=== PATIENT | female | born 1990 | race Caucasian/White ===

== ENCOUNTER → 2023-12-03 09:55 | Outpatient (REF) | payer OTHER, SELFPAY | LOC: HWRAD 09:55 | PROVIDERS: ATTENDING PHYSICIAN Nurse Practitioner | DX: R59.0 Localized enlarged lymph nodes (principal) | CPT/HCPCS: 76536 ==

== ENCOUNTER → 2023-12-19 13:31 | Outpatient (REF) | payer OTHER, SELFPAY ==
[2023-12-19 13:37] VITALS: BP 111/75; BP_SYST 87
== END ==
LOC: RADI 13:31
PROVIDERS: ATTENDING PHYSICIAN Nurse Practitioner
DX: E04.1 Nontoxic single thyroid nodule (principal)
CPT/HCPCS: 88173; 10005

== ENCOUNTER → 2024-01-08 08:59 | Outpatient (REF) | payer OTHER, SELFPAY | LOC: RAD 08:59 | PROVIDERS: ATTENDING PHYSICIAN Surgery; FAMILY PHYSICIAN Nurse Practitioner | DX: R59.1 Generalized enlarged lymph nodes (principal) | CPT/HCPCS: 70491; Q9967 ==

== ENCOUNTER → 2024-01-11 10:29 | Outpatient (REF) | payer OTHER, SELFPAY ==
[2024-01-11 10:46] VITALS: BP_SYST 73
[2024-01-11 12:51] VITALS: BP 111/73
== END ==
LOC: RADI 10:29
PROVIDERS: ATTENDING PHYSICIAN Surgery
DX: C77.0 Secondary and unspecified malignant neoplasm of lymph nodes of head, face and neck (principal); C73 Malignant neoplasm of thyroid gland
CPT/HCPCS: 88172; 88173; 88305; 38505; 76942; 88333; 99152; 99153

== ENCOUNTER 2024-01-29 11:13 | Inpatient (IN) | payer OTHER, SELFPAY ==
[2024-01-25 08:54] LABS: Hematocrit 39.4 % (37.0-47.0); Hemoglobin 13.5 g/dL (12.0-16.0); Mean Corp Hgb Conc. 34.3 g/dL (33.0-37.0); Mean Corpuscular Hgb 29.4 pg (27.0-31.0); Mean Corpuscular Volume 85.8 fL (81.0-99.0); Mean Platelet Volume 10.4 fL (7.4-10.4); Platelet Count 222 10^3/uL (130-400); Red Blood Cell Count 4.59 10^6/uL (4.20-5.40); Red Cell Dist. Width 12.6 % (11.5-14.5); White Blood Cell Count 5.8 10^3/uL (4.8-10.8)
[2024-01-25 08:58] LABS: INR 1.06; PT 13.6 Sec (11.4-14.6)
[2024-01-25 08:59] LABS: APTT 34.7 Sec (23.4-35.0)
[2024-01-25 09:31] LABS: ALT (SGPT) 13 U/L (0-35); AST (SGOT) 17 U/L (14-36); Albumin 4.3 g/dl (3.5-5.0); Alkaline Phosphatase 101 U/L (38-126); Blood Urea Nitrogen 14 mg/dl (7-17); Calcium 9.3 mg/dl (8.4-10.2); Carbon Dioxide 25 mmol/L (22-30); Chloride 105 mmol/L (98-107); Glucose 100 mg/dl (70-99); Potassium 4.2 mmol/L (3.5-5.1); Sodium 137 mmol/L (135-145); Total Bilirubin 0.5 mg/dl (0.2-1.3); Total Protein 7.2 g/dl (6.3-8.2); eGFR > 60.00
[2024-01-25 13:34] VITALS: BMI 25.1
[2024-01-29] VITALS (16 sets, daily range): BP systolic 10–143; BP diastolic 66–79; BMI 25.1
[2024-01-29] MEDS: TRANSDERM-SCOP 1 PATCH TRANSDERM (11:29)
[2024-01-29] MEDS: HEPARIN 5000 UNITS SC (11:30)
[2024-01-29] MEDS: TYLENOL 1000 MG PO (11:30)
[2024-01-29] MEDS: NEURONTIN 300 MG PO (11:30)
[2024-01-29] MEDS: NORMOSOL-R 1000 IV (11:31)
[2024-01-29] MEDS: D5/0.45%NSS with KCL 20 MEQ 1000 IV (18:37)
[2024-01-29] MEDS: DILAUDID 0.5 MG IV (19:08)
--- NOTE | 2024-01-29 19:45 | PTCARENOTE ---
Pt arrived from PACU to 2S at 1945 in a bed with IVF infusing. Pt has L STARR drain. Admission hx obtained at the bedside. Pt AAxOx3. Oriented to room and call chun.
[2024-01-29] MEDS: LAMICTAL 200 MG PO (20:47)
[2024-01-29] MEDS: TYLENOL 650 MG PO (20:49)
[2024-01-29] MEDS: TEGRETOL 200 MG PO (20:49)
[2024-01-29] MEDS: ZOFRAN 4 MG IV (20:53)
[2024-01-29 21:08] LABS: AST (SGOT) 26 U/L (14-36); Albumin 3.9 g/dl (3.5-5.0); Alkaline Phosphatase 82 U/L (38-126); Blood Urea Nitrogen 9 mg/dl (7-17); Calcium 7.8 mg/dl (8.4-10.2); Carbon Dioxide 24 mmol/L (22-30); Chloride 105 mmol/L (98-107); Estimated Creatinine Clearance 121 ml/min; Glucose 153 mg/dl (70-99); Potassium 4.1 mmol/L (3.5-5.1); Sodium 135 mmol/L (135-145); Total Bilirubin 0.3 mg/dl (0.2-1.3); Total Protein 6.5 g/dl (6.3-8.2); eGFR > 60.00
[2024-01-29 22:07] LABS: ALT (SGPT) 10 U/L (0-35)
[2024-01-29] MEDS: COMPAZINE 5 MG IV (22:08)
[2024-01-30] MEDS: TYLENOL PO (00:50)
[2024-01-30 03:40] VITALS: BP 113/69
[2024-01-30] MEDS: TYLENOL 650 MG PO ×4 (04:15→15:00)
[2024-01-30 07:12] VITALS: BP 114/66
[2024-01-30 07:31] LABS: ALT (SGPT) 11 U/L (0-35); AST (SGOT) 22 U/L (14-36); Albumin 3.5 g/dl (3.5-5.0); Alkaline Phosphatase 85 U/L (38-126); Blood Urea Nitrogen 8 mg/dl (7-17); Calcium 7.2 mg/dl (8.4-10.2); Carbon Dioxide 25 mmol/L (22-30); Chloride 105 mmol/L (98-107); Estimated Creatinine Clearance 121 ml/min; Glucose 121 mg/dl (70-99); Potassium 3.7 mmol/L (3.5-5.1); Sodium 136 mmol/L (135-145); Total Bilirubin 0.4 mg/dl (0.2-1.3); eGFR > 60.00
[2024-01-30] MEDS: D5/0.45%NSS with KCL 20 MEQ 1000 IV (07:48)
[2024-01-30] MEDS: CALCIUM GLUCONATE 100 IV (10:42)
--- NOTE | 2024-01-30 11:35 | CM ---
Initial assessment completed with patient who lives with a roommate in a 3rd floor apartment with no elevator and 3 steps to enter the building. No DME or in-home services. 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 Patient has
a history of anxiety but no inpatient psychiatric hospitalizations. [facility]acy is [facility] [place] and AUDIOVISUAL LEAD TECHNICIAN is Rachel Thornton. Discharge Plan of Care: Patient will need VN for wound care. She currently has a drain which may be removed
prior to discharge, if not, MD will remove in office on 01/31/24. [facility] is [facility].
Patient will be staying with father and step-mother after discharge. They live in a 2 story home with 2 steps to enter. Patient will remain on the 1st floor.
[place] [address] [address] [place]
Patient cell #: [phone]
Father-Toby cell#: [phone]
Step-Mother- [place] cell #: [phone]
[2024-01-30 11:48] VITALS: BP 115/69
--- NOTE | 2024-01-30 13:04 | VNURNOTE ---
This author attempted to meet patient at bedside, she was sound asleep. Home Health Liaison spoke with patient's father Toby over the phone to discuss [facility] nurse visits, schedule and homebound status. Patient will be staying at his house to
recoup. He understands that visits at home will be 1-3 x per week to assess wound, wound care, and teach medical management. Potential for home with drain. [facility] contact information provided. Father is aware that [facility] will contact them for start
of care in 1-2 days after discharge from . [facility] referral completed in [facility].
[2024-01-30] MEDS: TUMS EX (EXTRA STRENGTH) CHEWABLE 2 TABLET PO (15:00)
--- NOTE | 2024-01-30 15:55 | W.DS.TRANS ---
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
-
Discharge Instructions:
Sleep Apnea Risk Low
Discharge Diagnosis/Procedures thyroidectomy and neck dissection
Diet Regular
Activity As tolerated
Driving Restrictions No driving for 1 week
Bathing Restrictions OK to Shower
Instructions:
Stand-Alone Forms:
Changes to Home Medications: Yes
Discharge Medications:
DC Medications w/original date entered in [employer]
carbamazepine 200 mg tablet 200 mg PO QPM Mental Health/Anxiety 08/12/21
lamotrigine 100 mg tablet 200 mg PO QPM Mental Health/Anxiety 08/12/21
naproxen sodium 220 mg tablet (Aleve) 220 mg PO BID PRN pain 12/19/23
calcitriol 0.25 mcg capsule 0.25 mcg PO BID hypocalcemia #60 caps 01/30/24
calcium carbonate (Antacid Extra-Strength) 2 tab PO TID hypocalcemia #90 tabs 01/30/24
Home Medication Changes
Pending Results: No
[2024-01-30 16:07] VITALS: BP 122/78
--- NOTE | 2024-01-30 16:22 | CM ---
Patient has been medically cleared for discharge to home with [facility] VN services. Patient has arranged for transport home.
--- NOTE | 2024-02-03 10:18 | OR.RPT ---
Operative Report
Operative Report
PATIENT NAME: Garima Marrufo
DATE OF : 1990
DATE OF OPERATION: January 29, 2024
PREOPERATIVE DIAGNOSIS: Left Thyroid Cancer - C73; Metastatic lymph nodes in the left neck - C770
POSTOPERATIVE DIAGNOSIS: Same
SURGEON: Nilson Vieyra M.D.
OPERATION: Left Functional Neck Dissection Neck Dissection � 57520 (right level 6, left levels 2,3,4, & 6); Total thyroidectomy, autotransplant of two parathyroid glands in the left SCM muscle.
ANESTHESIA: GET
ESTIMATED BLOOD LOSS: 30 cc
DRAINS: Medium STARR drain
SPECIMEN: left neck tissue levels 2, 3, 4, and 6, right neck tissue level 6, and total thyroid
FINDINGS: a large left thyroid tumor, grossly matted cervical lymph nodes, fibrosis in the neck
COMPLICATIONS:�None
PROCEDURE:
The patient was taken to the operating room and placed in the usual supine position. After adequate general endotracheal anesthesia was established, the patient�s neck was extended, prepped, and draped in the typical sterile fashion. The head was
turned to the right. A hockey stick incision was made from the left mastoid process to the lower anterior neck. The skin incision was made with the #15 blade, which was taken through the skin into the subcutaneous tissue. The underlying platysma
muscle was divided, and subplatysmal flaps were created superiorly to the mandible and inferiorly to the clavicle. The sternocleidomastoid muscle into the sternum and the clavicle insertion to the angle of the mandible were dissected from its
surrounding fascia and areolar tissue. During this process, the greater auricular nerve and the external jugular vein were dissected and preserved.
The dissection of the sternocleidomastoid muscle began with a longitudinal incision over the fascia along the entire length of the muscle. The external jugular vein was transected close to the posterior border of the sternocleidomastoid muscle. The
external jugular vein was then included in the specimen and dissected forward with the fascia of the sternocleidomastoid muscle. The dissection reached the anterior border and the posterior aspect of the sternocleidomastoid muscle. At this time, the
spinal accessory nerve was identified below the upper half of the sternocleidomastoid muscle, which was dissected and preserved throughout its course.
The fascia of the digastric triangle is dissected downward, taking care to stay below the marginal mandibular nerve. The sternocleidomastoid is dissected off the deep layer of the investing fascia and retracted posteriorly. Significant fibrosis with
matted lymph nodes was identified, which made identifying structures difficult. The fascia and nodes of level II are dissected from the mastoid downward, exposing the internal jugular vein at the skull base and the spinal accessory nerve entering
the upper part of the sternocleidomastoid. The lymph nodes around and behind the spinal accessory nerve in level IIB were carefully dissected and swept inferiorly. Also, the submandibular gland and hypoglossal nerve were identified and preserved.
The sternocleidomastoid is retracted posteriorly, and no lymphadenopathy was noted in the posterior triangle (left level Vb). Therefore, the left level V lymph nodes were not dissected. The dissection was done by stripping the carotid sheath from
the anterior surfaces of the internal jugular vein and carotid artery and completing the dissection anteriorly to the edge of the strap muscles. The vagus and phrenic nerves were identified and preserved. The left levels 2, 3, and 4 were removed and
sent to the pathology department.
The strap muscles were identified and at the midline. Attention was turned to the patient�s right thyroid lobe. The right thyroid lobe was mobilized medially. During this process, the right middle thyroid vein and inferior thyroid artery
were dissected and ligated with Ligasure. Next, the right superior pole was taken down by dissecting and transecting the superior pole vessels with a Ligasure. The right thyroid lobe was mobilized medially. During this process, the right recurrent
laryngeal nerve was identified and preserved throughout its entire course. The right superior and inferior parathyroid glands were identified and preserved. At this time, the right neck dissection was performed. The tissue between the right carotid
artery to the trachea into the anterior mediastinum was carefully dissected. The previously identified recurrent laryngeal nerve was preserved. The inferior parathyroid gland had to be removed with the lymph nodes, which were dissected off the
specimen ex vivo and auto-transplanted in the left SCM muscle. �The tissue was sent to the pathology department as the right level lymph nodes.
Attention was turned to the patient�s left thyroid lobe, which was mobilized medially. During this process, the left middle thyroid vein and inferior thyroid artery were dissected and ligated with Ligasure. Next, the left superior pole was taken
down by dissecting and transecting the superior pole vessels with Ligasure. The left thyroid lobe was mobilized medially. During this process, the left recurrent laryngeal nerve was identified and preserved throughout its entire course. The total
thyroid was resected off the trachea and sent to the pathology department.
Next, the left neck dissection was performed. The tissue between the left carotid artery to the trachea into the anterior mediastinum was carefully dissected. The previously identified recurrent laryngeal nerve was preserved. The inferior
parathyroid gland had to be removed with the lymph nodes, which were dissected off the specimen ex vivo and auto-transplanted in the left SCM muscle with the other parathyroid gland. �The tissue was sent to the pathology department as the left level
lymph nodes.
A small STARR drain was left in the lateral neck through a separate inferior and lateral incision, which was anchored to the skin using a #3-0 Nylon. After obtaining adequate hemostasis, the strap muscle was approximated with #3-0 Vicryl in a running
fashion, and platysma muscles were reapproximated with #3-0 Vicryl in an interrupted fashion, and the skin was approximated with #4-0 Monocryl in a running subcuticular fashion. Steri-strips and sterile dressings were placed. The patient tolerated
the procedure well. The final instrument, needle, and sponge counts were correct.
== END 2024-01-30 16:52 | disposition home health service (06) | DRG 626 ==
LOC: 2 SOUTH 11:13
PROVIDERS: ADMITTING PHYSICIAN Surgery; FAMILY PHYSICIAN Nurse Practitioner
PROC: 07B10ZZ Excision of Right Neck Lymphatic, Open Approach (ICD-10-PCS; 2024-01-29)
PROC: 0GTK0ZZ Resection of Thyroid Gland, Open Approach (ICD-10-PCS; 2024-01-29)
PROC: 07B20ZZ Excision of Left Neck Lymphatic, Open Approach (ICD-10-PCS; 2024-01-29)
PROC: 0GSQ0ZZ Reposition Multiple Parathyroid Glands, Open Approach (ICD-10-PCS; 2024-01-29)
DX: C73 Malignant neoplasm of thyroid gland (principal); C77.0 Secondary and unspecified malignant neoplasm of lymph nodes of head, face and neck
CPT/HCPCS: 88305; 88307; 36415; 80053; 85027; 85610; 85730; 93005; C1729; C1776; C9250

== ENCOUNTER 2024-03-11 09:44 | Inpatient (IN) | payer OTHER, SELFPAY ==
[2024-03-11] VITALS (14 sets, daily range): BP systolic 10–132; BP diastolic 67–81; BMI 27.9
[2024-03-11] MEDS: NEURONTIN 300 MG PO (09:43)
[2024-03-11] MEDS: HEPARIN 5000 UNITS SC (09:44)
[2024-03-11] MEDS: TYLENOL 1000 MG PO (09:44)
[2024-03-11] MEDS: NORMOSOL-R/PLASMALYTE-A 1000 IV (09:45)
[2024-03-11] MEDS: TRANSDERM-SCOP 1 PATCH TRANSDERM (09:50)
--- NOTE | 2024-03-11 15:31 | OR.RPT ---
Operative Report
Operative Report
DATE OF OPERATION: March 11, 2024
PREOPERATIVE DIAGNOSIS: Thyroid Cancer - C73 with metastatic disease to ther cervical lymph nodes
POSTOPERATIVE DIAGNOSIS: Same
SURGEON: Nilson Vieyra M.D.
OPERATION: Right Functional Neck Dissection Neck Dissection and Left Selective Neck Level 5b Dissection- 52130
ANESTHESIA: GET
ESTIMATED BLOOD LOSS: 15 cc
DRAINS: Medium STARR drain
SPECIMEN: right neck tissue levels 2b, 3, 4, and 5b and left neck tissue level 5b
FINDINGS: fibrosis and bulky lymphadenopathy
COMPLICATIONS:�None
PROCEDURE:
The patient was taken to the operating room and placed in the usual supine position. After adequate general endotracheal anesthesia was established, the patient�s neck was extended, prepped, and draped in the typical sterile fashion. The head was
turned to the left. The previous left hockey stick incision was identified. A lateral incision, perpendicular to the old incision, was made from the mid-point of the old incision, over the left neck level 5b. The platysmal muscle was divided and the
subplatysmal flaps were created. The left spinal accessory nerve was identified preserved. The lymph node in the area was carefully dissected and sent to the pathology department.
Next, attention was turned to the right side of her neck. A hockey stick incision was made from the mastoid process to the lower anterior neck. The skin incision was made with the #15 blade, which was taken through the skin into the subcutaneous
tissue. The underlying platysma muscle was divided, and subplatysmal flaps were created superiorly to the mandible and inferiorly to the clavicle. The sternocleidomastoid muscle into the sternum and the clavicle insertion to the angle of the
mandible were dissected from its surrounding fascia and areolar tissue. During this process, the greater auricular nerve and the external jugular vein were dissected and preserved.
The dissection of the sternocleidomastoid muscle began with a longitudinal incision over the fascia along the entire length of the muscle. The external jugular vein was transected close to the posterior border of the sternocleidomastoid muscle. The
vein was then included in the specimen and dissected forward with the fascia of the sternocleidomastoid muscle. The dissection reached the anterior border and the posterior aspect of the sternocleidomastoid muscle. At this time, the spinal accessory
nerve was identified below the upper half of the sternocleidomastoid muscle, which was dissected and preserved throughout its course.
The fascia of the digastric triangle is dissected downward, taking care to stay below the marginal mandibular nerve. The sternocleidomastoid is dissected off the deep layer of the investing fascia and retracted posteriorly. The fascia and nodes of
level II are dissected from the mastoid downward, exposing the internal jugular vein at the skull base, and the spinal accessory nerve entering the upper part of the sternocleidomastoid. The lymph nodes around and behind the spinal accessory nerve
in level IIB were carefully dissected and swept inferiorly. Also, the submandibular gland and hypoglossal nerve were identified and preserved. The sternocleidomastoid is retracted posteriorly, and the tamika tissue of the posterior triangle (level
VB) is dissected from posterior to anterior, identifying and preserving the omohyoid and cervical plexus cutaneous branches. The dissection is completed by stripping the carotid sheath from the anterior surfaces of the internal jugular vein and
carotid artery and completing the dissection anteriorly to the edge of the strap muscles. The vagus and phrenic nerves were identified and preserved.
A small STARR drain was left in the lateral neck through a separate inferior and lateral incision, which was anchored to the skin using a #3-0 Nylon. After obtaining adequate hemostasis, the strap muscle was approximated with #3-0 Vicryl in a running
fashion, and platysma muscles were reapproximated with #3-0 Vicryl in an interrupted fashion, and the skin was approximated with #4-0 Monocryl in a running subcuticular fashion. Steri-strips and sterile dressings were placed. The patient tolerated
the procedure well. The final instrument, needle, and sponge counts were correct.
[2024-03-11] MEDS: TYLENOL 650 MG PO ×3 (16:17→23:30)
[2024-03-11] MEDS: NEURONTIN 100 MG PO ×2 (16:17→22:19)
[2024-03-11 16:21] LABS: ALT (SGPT) 17 U/L (0-35); AST (SGOT) 20 U/L (14-36); Albumin 3.8 g/dl (3.5-5.0); Alkaline Phosphatase 98 U/L (38-126); Blood Urea Nitrogen 15 mg/dl (7-17); Calcium 6.9 mg/dl (8.4-10.2); Carbon Dioxide 22 mmol/L (22-30); Chloride 104 mmol/L (98-107); Estimated Creatinine Clearance 108 ml/min; Glucose 121 mg/dl (70-99); Potassium 3.9 mmol/L (3.5-5.1); Sodium 138 mmol/L (135-145); Total Bilirubin 0.3 mg/dl (0.2-1.3); Total Protein 6.5 g/dl (6.3-8.2); eGFR > 60.00
[2024-03-11] MEDS: CALCIUM GLUCONATE 100 IV (18:17)
[2024-03-11] MEDS: TUMS EX (EXTRA STRENGTH) CHEWABLE TABLET 300 MG PO ×2 (18:17→22:19)
[2024-03-11] MEDS: LAMICTAL 200 MG PO (18:17)
[2024-03-11] MEDS: TEGRETOL 200 MG PO (18:17)
[2024-03-11] MEDS: ROCALTROL 0.25 MCG PO (20:11)
[2024-03-11] MEDS: TYLENOL PO (23:11)
[2024-03-12 03:30] VITALS: BP 111/65
--- NOTE | 2024-03-12 04:06 | DOWNTIME ---
There was a [employer] Client Crew Supervisor Downtime on 03/12/2024 from 0100 to 03/12/2024 at 0300. Downtime documentation of patient's care, including medication administrations, has been reconciled in the electronic record per guidelines. Refer to the
patient's paper chart under the miscellaneous tab to see printed paper medication records and downtime forms.
[2024-03-12] MEDS: TYLENOL 650 MG PO ×4 (04:41→15:58)
[2024-03-12] MEDS: SYNTHROID 125 MCG PO (04:41)
[2024-03-12 06:34] LABS: ALT (SGPT) 15 U/L (0-35); AST (SGOT) 19 U/L (14-36); Albumin 3.6 g/dl (3.5-5.0); Alkaline Phosphatase 82 U/L (38-126); Blood Urea Nitrogen 10 mg/dl (7-17); Calcium 7.3 mg/dl (8.4-10.2); Carbon Dioxide 26 mmol/L (22-30); Chloride 105 mmol/L (98-107); Estimated Creatinine Clearance 108 ml/min; Glucose 98 mg/dl (70-99); Potassium 3.8 mmol/L (3.5-5.1); Sodium 140 mmol/L (135-145); Total Bilirubin 0.4 mg/dl (0.2-1.3); Total Protein 6.2 g/dl (6.3-8.2); eGFR > 60.00
[2024-03-12 06:38] LABS: Calcium 7.2 mg/dl (8.4-10.2)
[2024-03-12 07:15] VITALS: BP 101/60
--- NOTE | 2024-03-12 08:02 | VNURNOTE ---
Chart reviewed. Patient is current with [facility] nursing. Will continue to follow hospital course and DC plans.
[2024-03-12] MEDS: NEURONTIN 100 MG PO ×2 (09:11→15:58)
[2024-03-12] MEDS: CALCIUM GLUCONATE 100 IV ×2 (09:11→15:59)
[2024-03-12] MEDS: TUMS EX (EXTRA STRENGTH) CHEWABLE TABLET 300 MG PO ×2 (09:11→15:57)
[2024-03-12] MEDS: ROCALTROL 0.25 MCG PO (09:11)
[2024-03-12 10:04] LABS: Intact PTH 46.5 pg/ml (13.6-85.8)
[2024-03-12 10:55] VITALS: BP 109/66
--- NOTE | 2024-03-12 12:02 | VNURNOTE ---
Addendum to 03/12 8963 Note: Patient was seen once by [facility] on 01/31/24 and discharged from services. Not current with [facility].
[2024-03-12 15:00] VITALS: BP 128/78
--- NOTE | 2024-03-12 15:05 | CM ---
CM met with pt bedside
Pt typcially resides in a apartment but has staying with her father and step mother for the past month
Plan for their home again on dc
Home is [address] with 2 [address], pt staying on 1st floor
Pt typically independent with her ADLs- no ADs
Pt was previously open to [facility] but closed
PCP- Rachel Thornton
Rx- [facility]
POD#1 and with janey drain
Pt declining VN at this time
if drain on dc, feels comfortable with self management for care
Will watch surgery notes for drain plan
Father's home address
[id number]
[place] [id number]
Discharge Disposition- anticipate father's home, no needs
--- NOTE | 2024-03-12 15:22 | W.PN.GENERIC ---
Assessment / Plan
-
S/p right functional neck dissection and left selective neck dissection. POD #1
Stable
STARR drain removed
Will give another 1 gm of calcium of persistent hypocalcemia
Will repeat CMP in AM
The right shoulder pain and upper back pain may be secondary to spinal accessary nerver trauma
Continue current pain medications
Will start IV toradol
OOB and ambulate
Physician Progress Note
Subjective
C/o shoulder and upper back pain. Some nausea.
Objective
Vital Signs
Temp Pulse Resp BP Pulse Ox
98.9 F 75 16 109/66 97
03/12/24 10:55 03/12/24 10:55 03/12/24 10:55 03/12/24 10:55 03/12/24 10:55
Lab Results
03/12/24 04:41
Neck - incisions - CDI. STARR drain with serosanguinous fluid but minimal amount.
Pul - CTA
Cor - RRR
[2024-03-12] MEDS: TORADOL 30 MG IV (15:57)
[2024-03-12] MEDS: LAMICTAL 200 MG PO (17:56)
[2024-03-12] MEDS: TEGRETOL 200 MG PO (17:57)
--- NOTE | 2024-03-12 17:58 | W.DS.TRANS ---
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
-
Discharge Instructions:
Sleep Apnea Risk Low
Discharge Diagnosis/Procedures Thyroid cancer
Diet Regular
Activity As tolerated
Driving Restrictions No driving for 1 week
Bathing Restrictions OK to Shower
Instructions:
Stand-Alone Forms:
Changes to Home Medications: No
Discharge Medications:
DC Medications w/original date entered in [employer]
carbamazepine 200 mg tablet 200 mg PO QPM Mental Health/Anxiety 08/12/21
lamotrigine 100 mg tablet 200 mg PO QPM Mental Health/Anxiety 08/12/21
naproxen sodium 220 mg tablet (Aleve) 220 mg PO BID PRN pain 12/19/23
calcitriol 0.25 mcg capsule 0.25 mcg PO BID hypocalcemia #60 caps 01/30/24
Medical Cannibus 1 dose PO PRN PRN pain, anxiety, sleep 03/10/24
acetaminophen 325 mg tablet (Tylenol) 650 mg PO Q4H PRN pain 03/10/24
calcium carbonate (Tums Extra Strength Smoothies) 300 mg PO TID HEARTBURN 03/10/24
levothyroxine 125 mcg tablet (Synthroid) 125 mcg PO DAILY Thyroid 03/10/24
Home Medication Changes
Pending Results: No
[2024-03-12 19:29] VITALS: BP 149/91
== END 2024-03-12 19:35 | disposition home or self-care (01) | DRG 822 ==
LOC: 2 SOUTH 09:44
PROVIDERS: ADMITTING PHYSICIAN Surgery; FAMILY PHYSICIAN Nurse Practitioner
PROC: 07T10ZZ Resection of Right Neck Lymphatic, Open Approach (ICD-10-PCS; 2024-03-11)
PROC: 07B20ZZ Excision of Left Neck Lymphatic, Open Approach (ICD-10-PCS; 2024-03-11)
DX: C77.0 Secondary and unspecified malignant neoplasm of lymph nodes of head, face and neck (principal); C73 Malignant neoplasm of thyroid gland; E89.0 Postprocedural hypothyroidism
CPT/HCPCS: 88307; 80053; 83970; C1776; C9250

== ENCOUNTER → 2024-03-24 11:04 | Outpatient (REF) | payer OTHER, SELFPAY | LOC: HWRAD 11:04 | PROVIDERS: ATTENDING PHYSICIAN Surgery; FAMILY PHYSICIAN Nurse Practitioner | DX: G89.18 Other acute postprocedural pain (principal); R22.1 Localized swelling, mass and lump, neck; M54.2 Cervicalgia | CPT/HCPCS: 70490 ==

== ENCOUNTER → 2024-04-17 15:21 | Outpatient (REF) | payer OTHER, SELFPAY | LOC: HWRAD 15:21 | PROVIDERS: ATTENDING PHYSICIAN Internal Medicine Endocrinology, Diabetes & Metabolism; FAMILY PHYSICIAN Nurse Practitioner; REFERRING PHYSICIAN Surgery | DX: C73 Malignant neoplasm of thyroid gland (principal) | CPT/HCPCS: 71250 ==

== ENCOUNTER 2024-04-23 08:13 | Outpatient (RCR) | payer OTHER, SELFPAY | END 2024-04-23 23:59 | disposition home or self-care (01) | LOC: RPT 08:13 | PROVIDERS: ATTENDING PHYSICIAN Surgery; FAMILY PHYSICIAN Nurse Practitioner | DX: C73 Malignant neoplasm of thyroid gland (principal); C77.0 Secondary and unspecified malignant neoplasm of lymph nodes of head, face and neck; Z73.6 Limitation of activities due to disability; M62.81 Muscle weakness (generalized); R20.0 Anesthesia of skin; M25.511 Pain in right shoulder; Z98.890 Other specified postprocedural states | CPT/HCPCS: 97163; 97535 ==

== ENCOUNTER 2024-05-21 08:29 | Emergency (ER) | payer OTHER, SELFPAY ==
[2024-05-21 08:30] VITALS: BP 144/82
[2024-05-21 08:47] VITALS: BMI 28.7
--- NOTE | 2024-05-21 09:10 | ED.GENMED ---
History of Present Illness
<Neha Villalpando PA-C - Last Filed: 05/21/24 17:24>
General
Chief Complaint: Abnormal Lab Value
Source: patient
Exam Limitations: none
Time Seen by Provider: 05/21/24 09:04
Nursing documentation reviewed up to this point in time: agreed with
History of Present Illness
History of Present Illness:
34-year-old female with past medical history of metastatic thyroid cancer presents emergency department today with concerns of thrombocytopenia. Patient reports that she started noticing diffuse petechiae 2 days ago as well as ecchymosis. Patient
follows with Dr. Wilde for endocrinology and also follows with Viraj Balderas. Patient 2 months ago had total thyroidectomy and bilateral neck lymph node dissection. She notes increasing fatigue over the past few days and notes that it was very
heavy. She denies any fevers or chills, chest pain, shortness of breath abdominal pain, bleeding from her gums, headaches. Patient has had surgery for cancer denies any radiation, chemotherapy. She does not take any anticoagulant medication.
Patient is not currently undergoing any chemotherapy or radiation. Patient reports that she was told her platelet count was 18 on recent blood work done yesterday and in November it was 149. Patient does take carbamazepine she has been taking this for
many years which is known to cause thrombocytopenia however patient has never had this issue before.
Past History
<Neha Villalpando PA-C - Last Filed: 05/21/24 17:24>
Past History
ED Past Medical History: Psychiatric
ED Past Surgical History: None
Review of Systems
<Neha Villalpando PA-C - Last Filed: 05/21/24 17:24>
Review of Systems
All Other Systems: ROS reviewed and negative except as documented in HPI and ROS
Phy Exam
<Nhea Villalpando PA-C - Last Filed: 05/21/24 17:24>
Physical Exam
Physical Exam:
General: Patient is well appearing and in no acute distress; non-toxic
Skin: Diffuse petechiae noted on bilateral upper and lower extremities, abdomen, and chest
Head: Normocephalic, atraumatic
Eyes: Sclera non-icteric. EOMs intact.
Mouth: No intraoral lesions, no bleeding from the gums
Cardiac: Regular rate and rhythm, no murmurs
Peripheral Vascular: No lower extremity swelling or edema
Pulm: Normal respiratory effort, no wheezes, rales,
Neuro: CN II-XII intact, no focal neurologic deficits.
Psychiatric: Appropriate mood and affect.
Course
<Neha Villalpando PA-C - Last Filed: 05/21/24 17:24>
Orders/Labs/Results
Orders:
Orders
05/21/24 09:00
Type And Crossmatch [Type+Screen] Urgent
Complete Blood Count/With Diff Urgent
Comprehensive Metabolic Panel Urgent
Folate Urgent
Comment: ADD ON
Tegretol (Carbamazepine) Urgent
Comment: ADD ON
Vitamin B12 Urgent
Comment: ADD ON
05/21/24 09:29
Test Result ONCE
05/21/24 09:41
Fibrinogen Urgent
, Urine Qualitative Screen [HCG, Urine Qualitative Screen] Urgent
Date Specimen was Collected: 05/21/24
Time Specimen was Collected: 09:35
Prothrombin Time Urgent
05/21/24 09:46
COVID-19 Antigen Urgent
Source: Nasal Swab
Influenza A+B Rapid Molecular Urgent
ARIANNE Source: Nasal Swab
Specimen Description:
05/21/24 09:58
Add On- LAB Urgent
Tests Added?: tegretol
05/21/24 10:32
Add On- LAB Urgent
Tests Added?: B12, folate
05/21/24 11:39
Dexamethasone Sod Phosphate [Decadron] 40 mg IV NOW STA
05/21/24 11:40
Pantoprazole [Protonix] 20 mg PO NOW STA
Abnormal Lab Results
05/21/24
09:00
WBC 3.5 L 10^3/uL
(4.8-10.8)
RBC 3.43 L 10^6/uL
(4.20-5.40)
Hgb 10.9 L g/dL
(12.0-16.0)
Hct 31.4 L %
(37.0-47.0)
MCH 31.8 H pg
(27.0-31.0)
Plt Count 19 L* 10^3/uL
(130-400)
Neutrophils % 41.1 L %
(42.2-75.2)
BUN 18 H mg/dl
(7-17)
Glucose 120 H mg/dl
(70-99)
Calcium 8.1 L mg/dl
(8.4-10.2)
05/21/24 09:00
05/21/24 09:00
Vital Signs
Initial and Last Documented VS:
Initial Vital Signs
Temp Pulse Resp BP Pulse Ox
97.6 F 101 18 144/82 99
05/21/24 08:30 05/21/24 08:30 05/21/24 08:30 05/21/24 08:30 05/21/24 08:30
Last Documented Vital Signs
Temp Pulse Resp BP Pulse Ox
97.9 F 79 22 122/88 99
05/21/24 12:37 05/21/24 12:37 05/21/24 12:37 05/21/24 12:37 05/21/24 12:37
Syedalt;Erickson Newton, DO - Last Filed: 05/21/24 11:25>
Orders/Labs/Results
Orders:
Orders
05/21/24 09:00
Type And Crossmatch [Type+Screen] Urgent
Complete Blood Count/With Diff Urgent
Comprehensive Metabolic Panel Urgent
Folate Urgent
Comment: ADD ON
Tegretol (Carbamazepine) Urgent
Comment: ADD ON
Vitamin B12 Urgent
Comment: ADD ON
05/21/24 09:29
Test Result ONCE
05/21/24 09:41
Fibrinogen Urgent
, Urine Qualitative Screen [HCG, Urine Qualitative Screen] Urgent
Date Specimen was Collected: 05/21/24
Time Specimen was Collected: 09:35
Prothrombin Time Urgent
05/21/24 09:46
COVID-19 Antigen Urgent
Source: Nasal Swab
Influenza A+B Rapid Molecular Urgent
ARIANNE Source: Nasal Swab
Specimen Description:
05/21/24 09:58
Add On- LAB Urgent
Tests Added?: tegretol
05/21/24 10:32
Add On- LAB Urgent
Tests Added?: B12, folate
05/21/24 11:39
Dexamethasone Sod Phosphate [Decadron] 40 mg IV NOW STA
05/21/24 11:40
Pantoprazole [Protonix] 20 mg PO NOW STA
Abnormal Lab Results
05/21/24
09:00
WBC 3.5 L 10^3/uL
(4.8-10.8)
RBC 3.43 L 10^6/uL
(4.20-5.40)
Hgb 10.9 L g/dL
(12.0-16.0)
Hct 31.4 L %
(37.0-47.0)
MCH 31.8 H pg
(27.0-31.0)
Plt Count 19 L* 10^3/uL
(130-400)
Neutrophils % 41.1 L %
(42.2-75.2)
BUN 18 H mg/dl
(7-17)
Glucose 120 H mg/dl
(70-99)
Calcium 8.1 L mg/dl
(8.4-10.2)
05/21/24 09:00
05/21/24 09:00
Vital Signs
Initial and Last Documented VS:
Initial Vital Signs
Temp Pulse Resp BP Pulse Ox
97.6 F 101 18 144/82 99
05/21/24 08:30 05/21/24 08:30 05/21/24 08:30 05/21/24 08:30 05/21/24 08:30
Last Documented Vital Signs
Temp Pulse Resp BP Pulse Ox
97.9 F 79 22 122/88 99
05/21/24 12:37 05/21/24 12:37 05/21/24 12:37 05/21/24 12:37 05/21/24 12:37
Syedalt;Neha Villalpando PA-C - Last Filed: 05/21/24 17:24>
MDM/Problems Addressed
Differential Diagnosis Includes:
Differentials include DIC, TTP, viral infection, leukemia, nutritional deficiency, medication induced
MDM/Problems Addressed:
34-year-old female presents emergency department today with concerns of thrombocytopenia. Of note, she had recent total thyroidectomy and bilateral neck dissection procedure. She is not currently undergoing chemotherapy or radiation. She noted
diffuse petechiae 2 days ago and was sent to the emergency department due to outpatient blood work. On physical exam, she has no active bleeding. Her lab work she has no abnormal LFTs, no evidence of hemolysis for fibrinolysis, no evidence of
nutritional deficiency. I spoke to Dr. 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 No transfusion indicated at this time. Patient is on carbamazepine however level is within normal limits. Per hematology
recommendations, will start patient on steroid. Return precautions discussed with patient. Dr. Rosas made appointment to see patient as an outpatient with patient's registration scheduling specialist made aware.
Chronic conditions affecting care:
metastatic thyroid cancer
<Neha Villalpando PA-C - Last Filed: 05/21/24 17:24>
*Pulse Oximetry
Patient hypoxic: no
*Critical Care Note
Total Time (30-74mins, 75-104mins- exclusive of procedures): Not Applicable
Data Reviewed
Review of Other/Old Records Reveals: Records (Reviewed previous discharge summary from 03/13/2024, patient had surgical resection of thyroid and lymph node resection)
Source: patient and records
<Neha Villalpando PA-C - Last Filed: 05/21/24 17:24>
Patient Management
Escalation/DeEscalation of care consider admission/obs:
Admit not indicated patient stable for discharge
ED Attending Note
<HAZEL Madden Last Filed: 05/21/24 17:24>
-
Portions of this chart may have been created with voice recognition software.� Occasional wrong word or��sound alike� substitutions may have occurred due to the inherent limitations of voice recognition software.
<Erickson Newton DO - Last Filed: 05/21/24 11:25>
ED Attending Note
Patient seen and examined by attending physician: Yes
I performed the substantive portion of visit, reviewed & personally made and approve the management plan that is documented in note by myself or ILDEFONSO.: Yes
ED Attending Note:
Seen with MYLES examined independently 34-year-old female status post thyroid removed for cancer by Dr. Vieyra follow-up with Dr. Wilde, called in she has had some petechiae she has thrombocytopenia she had [address] Marina newby
neck oncologist at [place]--- labs are noted here, given instructions for any trauma or heavy bleeding, PA's been in contact with hematology here will treat with steroids presumed ITP will try to confirm where she is going to follow-up at
[facility] and/or [facility]
Discharge Plan
Departure
Patient Disposition: Home (Routine Discharge)
Date of Disposition: 05/21/24
Time of Disposition: 11:30
Patient with high blood pressure during this ER visit?: Yes
Condition: Good
Discharge Problem:
Thrombocytopenia
Instructions: Managing increased bleeding risk, Platelet count, BLOOD PRESSURE
Prescriptions:
New
dexamethasone 4 mg tablet
40 mg PO DAILY 3 Days Qty: 30 0RF
No Action
carbamazepine 200 MG tablet
200 mg PO QPM
lamotrigine 100 MG tablet
200 mg PO QPM
naproxen sodium [Aleve] 220 mg Tablet
220 mg PO BID PRN (Reason: pain)
calcitriol 0.25 mcg Capsule
0.25 mcg PO BID Qty: 60 0RF
acetaminophen [Tylenol] 325 mg Tablet
650 mg PO Q4H PRN (Reason: pain)
Tums Extra Strength Smoothies 300 mg (750 mg) Tablet,Chewable
300 mg PO TID
levothyroxine [Synthroid] 125 mcg Tablet
125 mcg PO DAILY
Medical Cannibus
1 dose PO PRN PRN (Reason: pain, anxiety, sleep)
Referrals:
Rachel Thornton CRNP [Family Provider] -
Nimesh Rosas MD [Active] - Call in 1-3 days for appt
Activity Restrictions/Additional Instructions:
Please call Dr. Rosas's office today to schedule an appointment. Please say that you were seen in the emergency department.
You received 40 mg of Decadron through the IV. Decadron tablets have been sent to you pharmacy. Please take 40 mg once daily (total of 10 tablets daily) for 3 additional days.
Please return emergency department should you experience bleeding, dark tarry stools, headache, blurred vision, vomiting blood, syncopal episodes, chest pain, shortness of breath, or any other signs or symptoms worrisome to you.
Interventions
Interventions:
*Risk Screen - Suicide Last Done: 05/21/24 08:30
*General Assessment Last Done: 05/21/24 08:30
*Neglect/Abuse Screening Last Done: 05/21/24 08:30
*ED COVID-19 Vaccine History Last Done: 05/21/24 08:54
*Nursing Disposition Last Done: 05/21/24 12:37
Discharge Date and Time
Discharge Date/Time: 05/21/24 12:39
Print Language: DANISH
[2024-05-21 09:15] LABS: % Eosinophils 1.1 % (0-6); % Immature Granulocytes 0.3 % (0-0.5); % Monocytes 8.5 % (1.7-9.3); % Neutrophils 41.1 % (42.2-75.2); Absolute Lymphocytes 1.7 10^3/uL (1.2-3.4); Absolute Monocytes 0.3 10^3/uL (0.1-0.6); Absolute Neutrophils 1.4 10^3/uL (1.4-6.5); Hematocrit 31.4 % (37.0-47.0); Hemoglobin 10.9 g/dL (12.0-16.0); Mean Corp Hgb Conc. 34.7 g/dL (33.0-37.0); Mean Corpuscular Hgb 31.8 pg (27.0-31.0); Mean Corpuscular Volume 91.5 fL (81.0-99.0); Nucleated Red Blood Cells % 0 %; Red Blood Cell Count 3.43 10^6/uL (4.20-5.40); Red Cell Dist. Width 13.2 % (11.5-14.5); White Blood Cell Count 3.5 10^3/uL (4.8-10.8)
[2024-05-21 09:21] LABS: ALT (SGPT) 28 U/L (0-35); AST (SGOT) 23 U/L (14-36); Albumin 4.6 g/dl (3.5-5.0); Alkaline Phosphatase 93 U/L (38-126); Blood Urea Nitrogen 18 mg/dl (7-17); Calcium 8.1 mg/dl (8.4-10.2); Carbon Dioxide 29 mmol/L (22-30); Chloride 103 mmol/L (98-107); Estimated Creatinine Clearance > 125 ml/min; Glucose 120 mg/dl (70-99); Potassium 4.1 mmol/L (3.5-5.1); Sodium 141 mmol/L (135-145); Total Bilirubin 0.4 mg/dl (0.2-1.3); Total Protein 7.6 g/dl (6.3-8.2); eGFR > 60.00
[2024-05-21 09:45] LABS: Mean Platelet Volume 10.4 fL (7.4-10.4); Platelet Count 19 10^3/uL (130-400)
[2024-05-21 09:58] LABS: HCG, Urine Qualitative Screen Negative
[2024-05-21 10:09] LABS: Fibrinogen 388 MG/DL (199-459); PT 12.7 Sec (11.4-14.6)
[2024-05-21 10:18] LABS: COVID-19 Antigen Negative (Negative)
[2024-05-21 11:43] LABS: Tegretol (Carbamazepine) 4.4 ug/ml (4-12)
[2024-05-21] MEDS: DECADRON 40 MG IV (11:55)
[2024-05-21] MEDS: PROTONIX 20 MG PO (11:55)
[2024-05-21 12:07] VITALS: BP 122/88
[2024-05-21 12:37] VITALS: BP 122/88
[2024-05-21 12:37] LABS: Folate 7.6 ng/ml (2.76-20); Vitamin B12 373 pg/ml (239-931)
== END 2024-05-21 12:39 | disposition home or self-care (01) ==
LOC: EMR 08:29
PROVIDERS: Physician Assistant; EMERGENCY PHYSICIAN Emergency Medicine; FAMILY PHYSICIAN Nurse Practitioner
DX: D69.6 Thrombocytopenia, unspecified (principal); R03.0 Elevated blood-pressure reading, without diagnosis of hypertension; R23.3 Spontaneous ecchymoses; R53.83 Other fatigue; Z11.52 Encounter for screening for COVID-19; C73 Malignant neoplasm of thyroid gland; F31.9 Bipolar disorder, unspecified; F41.9 Anxiety disorder, unspecified; F43.10 Post-traumatic stress disorder, unspecified; Z79.899 Other long term (current) drug therapy; Z87.891 Personal history of nicotine dependence
CPT/HCPCS: 99284; 96374; 80053; 80156; 81025; 82607; 82746; 85025; 85384; 85610; 86850; 86900; 86901; 87502; 87811

== ENCOUNTER 2024-05-23 08:58 | Outpatient (RCR) | payer OTHER, SELFPAY | END 2024-05-23 23:59 | disposition home or self-care (01) | LOC: RPT 08:58 | PROVIDERS: ATTENDING PHYSICIAN Surgery; FAMILY PHYSICIAN Nurse Practitioner | DX: C73 Malignant neoplasm of thyroid gland (principal); C77.0 Secondary and unspecified malignant neoplasm of lymph nodes of head, face and neck; Z73.6 Limitation of activities due to disability; M62.81 Muscle weakness (generalized); R20.0 Anesthesia of skin; M25.511 Pain in right shoulder; Z98.890 Other specified postprocedural states | CPT/HCPCS: 97140; 97535 ==

== ENCOUNTER 2024-05-30 08:52 | Outpatient (RCR) | payer OTHER, SELFPAY | END 2024-05-30 23:59 | disposition home or self-care (01) | LOC: RPT 08:52 | PROVIDERS: ATTENDING PHYSICIAN Surgery; FAMILY PHYSICIAN Nurse Practitioner | DX: C73 Malignant neoplasm of thyroid gland (principal); C77.0 Secondary and unspecified malignant neoplasm of lymph nodes of head, face and neck; Z73.6 Limitation of activities due to disability; M62.81 Muscle weakness (generalized); L90.5 Scar conditions and fibrosis of skin; R20.0 Anesthesia of skin; R29.3 Abnormal posture; M25.511 Pain in right shoulder; Z98.890 Other specified postprocedural states | CPT/HCPCS: 97140 ==

== ENCOUNTER → 2024-06-02 11:07 | Outpatient (REF) | payer OTHER, SELFPAY ==
[2024-05-29 10:09] VITALS: BMI 29.6
[2024-06-02 11:33] VITALS: BP 118/76; BP_SYST 94
[2024-06-02 11:39] LABS: INR 0.92; PT 12.7 Sec (11.4-14.6)
[2024-06-02 11:42] LABS: Hemoglobin 8.7 g/dL (12.0-16.0); Mean Corp Hgb Conc. 36.3 g/dL (33.0-37.0); Mean Corpuscular Hgb 32.8 pg (27.0-31.0); Mean Corpuscular Volume 90.6 fL (81.0-99.0); Red Blood Cell Count 2.65 10^6/uL (4.20-5.40); Red Cell Dist. Width 13.5 % (11.5-14.5); White Blood Cell Count 3.4 10^3/uL (4.8-10.8)
[2024-06-02] MEDS: ATIVAN 0.5 MG IV (11:59)
[2024-06-02] MEDS: NSS (PRESERVATIVE FREE) 0.25 ML IV (11:59)
[2024-06-02] MEDS: FLUSH (NSS) 1 FLUSH IV (12:00)
[2024-06-02 12:11] LABS: % Eosinophils 0.3 % (0-6); % Immature Granulocytes 0.3 % (0-0.5); % Lymphocytes 53.8 % (20.5-51.1); % Monocytes 5.3 % (1.7-9.3); % Neutrophils 40.3 % (42.2-75.2); Absolute Lymphocytes 1.8 10^3/uL (1.2-3.4); Absolute Monocytes 0.2 10^3/uL (0.1-0.6); Absolute Neutrophils 1.4 10^3/uL (1.4-6.5); Mean Platelet Volume 9.9 fL (7.4-10.4); Nucleated Red Blood Cells % 0 %
[2024-06-02 12:12] LABS: Platelet Count 10 10^3/uL (130-400)
[2024-06-02 12:50] VITALS: BP 142/91
== END ==
LOC: RADI 11:07
PROVIDERS: ATTENDING PHYSICIAN Internal Medicine Hematology & Oncology; FAMILY PHYSICIAN Nurse Practitioner; OTHER PHYSICIAN Internal Medicine Nephrology; REFERRING PHYSICIAN Surgery
DX: D69.6 Thrombocytopenia, unspecified (principal); D64.9 Anemia, unspecified; Z85.850 Personal history of malignant neoplasm of thyroid; Z01.812 Encounter for preprocedural laboratory examination; Z01.818 Encounter for other preprocedural examination
CPT/HCPCS: 88305; 88311; 88312; 36415; 38222; 77012; 85025; 85610; 88313

== ENCOUNTER 2024-06-02 13:02 | Emergency (ER) | payer OTHER, SELFPAY ==
[2024-06-02] VITALS (7 sets, daily range): BP systolic 97–112; BP diastolic 58–78; BMI 29.6
--- NOTE | 2024-06-02 13:57 | ED.GENMED ---
History of Present Illness
General
Chief Complaint: Abnormal Lab Value
Source: patient and records
Exam Limitations: none
Time Seen by Provider: 06/02/24 13:38
Nursing documentation reviewed up to this point in time: agreed with
History of Present Illness
History of Present Illness:
Patient is a 34-year-old female presents to the emergency department after having a bone biopsy today and IR with thrombocytopenia. Patient's been having thrombocytopenia but seem to improve after being on steroids. However today's value was lower
at 10,000. Patient's been having nasal congestion and feeling like she has had a cold since May 21. Patient was checked for COVID at that time but not since. Patient feels very fatigued especially with any exertion. Patient denies chest
pain or shortness of breath. Patient denies any melena or hematochezia. Patient has not had a period since the middle of April but at that time her periods are getting heavier. Patient was diagnosed in February with metastatic thyroid cancer.
Patient's parathyroid glands were reportedly removed at the same time. Patient is on thyroid replacement. Patient had dissection of both sides of her neck for lymph nodes.
Past History
Past History
ED Past Medical History: Cancer (Thyroid) and Psychiatric (Bipolar)
ED Past Surgical History: None
Social History
Tobacco: Non-smoker
Review of Systems
Review of Systems
All Other Systems: ROS reviewed and negative except as documented in HPI and ROS
Constitutional: Reports fatigue; Denies fever or chills
EENT: Reports runny nose
Respiratory: Reports no symptoms
Cardiac: Reports no symptoms
ABD/GI: Reports no symptoms
: Reports no symptoms
Musculoskeletal: Reports no symptoms
Skin: Reports no symptoms
Neurological: Reports no symptoms
Hematologic/Lymphatic: Reports bruising
Phy Exam
Physical Exam
Physical Exam:
Physical Exam
General: No apparent distress, alert and appropriate, well nourished, well hydrated
HENT: Normocephalic, supple with no lymphadenopathy, well healing surgical wound
Eyes: Clear sclera, conjuctiva without injection
Heart: Regular rhythm and rate. No S3, S4. No murmur. No NVD
Lungs: No respiratory distress, no stridor, lung sounds clear and equal bilaterally
Abdomen: Soft, nontender, no organomegaly, BS good
Neuro: Alert and oriented x 3, CN II - XII intact, no motor focality, no cerebellar dysfunction
Skin: no rash. pale
Psychiatric: well kept. interactive and cooperative
Extremities: No edema, cyanosis, tenderness
Course
Orders/Labs/Results
Orders:
Orders
06/02/24 13:49
CT Chest/abd/pel W Iv Cont Urgent
Comment:
Reason For Exam: metastatic thyroid ca with oral constrast
0.9% Sodium Chloride 1000 ml [Nss] 1,000 ml IV BOLUS
Iohexol [Omnipaque] See Protocol PO NOW STA
06/02/24 13:50
Test Result ONCE
06/02/24 14:04
COVID-19 Antigen Urgent
Source: Nasal Swab
Comprehensive Metabolic Panel Urgent
Ferritin Urgent
Folate Urgent
HCG, Serum Qualitative Screen Urgent
Iron Urgent
Magnesium Urgent
Comment: ADD ON
PTH [Intact PTH Includes Calcium] Urgent
TIBC [Total Iron Binding] Urgent
TSH Reflex To Free T4 Urgent
Vitamin B12 Urgent
06/02/24 15:08
Add On- LAB Urgent
Tests Added?: magnesium
06/02/24 15:45
Calcium Gluconate 2 gram/100mL [Calcium Gluconate] 2 gram in 100 ml IV ONCE
06/02/24 17:55
Blood Bank Products [* Blood Bank Products] Urgent
Blood Bank Products: *Plt Single Donor Leuko
Quantity: 1
Transfuse Today: Yes
Reason: Thrombocytopenia
06/02/24 18:05
Type And Crossmatch [Type+Screen] Urgent
Abnormal Lab Results
06/02/24
14:04
Carbon Dioxide 31 H mmol/L
(22-30)
Glucose 104 H mg/dl
(70-99)
Calcium 6.9 L* mg/dl
(8.4-10.2)
TIBC 226 L ug/dl
(265-497)
% Saturation 61 H %
(20-50)
Total Bilirubin 0.1 L mg/dl
(0.2-1.3)
Total Protein 6.1 L g/dl
(6.3-8.2)
Albumin 3.4 L g/dl
(3.5-5.0)
06/02/24 14:04
Vital Signs
Initial and Last Documented VS:
Initial Vital Signs
Pulse BP Pulse Ox
99 112/78 98
06/02/24 13:05 06/02/24 13:05 06/02/24 13:05
Last Documented Vital Signs
Temp Pulse Resp BP Pulse Ox
97.9 F 81 20 105/67 98
06/02/24 18:50 06/02/24 18:50 06/02/24 18:50 06/02/24 18:50 06/02/24 18:50
*Pulse Oximetry
Patient hypoxic: no
*EKG
Interpreted by ED Provider?: NA
*Sweet Potato Disintegrator Interpretation
Rate: Sweet Potato Disintegrator- N/A
*Critical Care Note
Total Time (30-74mins, 75-104mins- exclusive of procedures): Not Applicable
ED Attending Note
-
Portions of this chart may have been created with voice recognition software.� Occasional wrong word or��sound alike� substitutions may have occurred due to the inherent limitations of voice recognition software.
Discharge Plan
Departure
Patient Disposition: Home (Routine Discharge)
Date of Disposition: 06/02/24
Time of Disposition: 19:11
Patient with high blood pressure during this ER visit?: No
Condition: Fair
Covid-19: Not Applicable
Discharge Problem:
Thrombocytopenia, Thyroid cancer, Hypocalcemia, Anemia
Instructions: Hypoparathyroidism, Hypocalcemia (DC), Managing increased bleeding risk
Prescriptions:
No Action
carbamazepine 200 MG tablet
200 mg PO QPM
naproxen sodium [Aleve] 220 mg Tablet
220 mg PO BIDPRN PRN (Reason: mild pain)
calcitriol 0.25 mcg Capsule
0.25 mcg PO BID Qty: 60 0RF
acetaminophen [Tylenol] 325 mg Tablet
650 mg PO Q4HPRN PRN (Reason: mild pain)
Tums Extra Strength Smoothies 300 mg (750 mg) Tablet,Chewable
300 mg PO BID
levothyroxine [Synthroid] 175 mcg Tablet
175 mcg PO DAILY
lamotrigine 200 mg Tablet
200 mg PO QPM
Medical Marijuana
1 gummy PO DAILYPRN PRN (Reason: mild pain/anxiety/sleep)
gabapentin 300 mg Capsule
300 mg PO TID
Referrals:
Rachel Thornton CRNP [Family Provider] - Follow up in 2-3 days
Activity Restrictions/Additional Instructions:
Continue present medications and therapy
Interventions
Interventions:
*Risk Screen - Suicide Last Done: 06/02/24 13:05
*General Assessment Last Done: 06/02/24 13:05
*Neglect/Abuse Screening Last Done: 06/02/24 13:05
*ED COVID-19 Vaccine History Last Done: 06/02/24 13:05
Discharge Date and Time
Print Language: URDU
[2024-06-02] MEDS: OMNIPAQUE 50 ML PO (14:05)
[2024-06-02] MEDS: NSS 1000 IV (14:07)
[2024-06-02 14:34] LABS: COVID-19 Antigen Negative (Negative)
[2024-06-02 14:37] LABS: HCG, Serum Qualitative Screen Negative
[2024-06-02 14:50] LABS: Intact PTH 53.9 pg/ml (13.6-85.8)
[2024-06-02 14:51] LABS: ALT (SGPT) 23 U/L (0-35); AST (SGOT) 20 U/L (14-36); Albumin 3.4 g/dl (3.5-5.0); Alkaline Phosphatase 86 U/L (38-126); Blood Urea Nitrogen 16 mg/dl (7-17); Calcium 6.9 mg/dl (8.4-10.2); Carbon Dioxide 31 mmol/L (22-30); Chloride 103 mmol/L (98-107); Glucose 104 mg/dl (70-99); Iron 138 ug/dl (37-170); Percent Saturation 61 % (20-50); Sodium 139 mmol/L (135-145); Total Bilirubin 0.1 mg/dl (0.2-1.3); Total Iron Binding Capacity 226 ug/dl (265-497); Total Protein 6.1 g/dl (6.3-8.2); eGFR > 60.00
[2024-06-02 15:21] LABS: TSH Reflex To Free T4 1.68 uIU/ml (0.47-4.68)
[2024-06-02] MEDS: CALCIUM GLUCONATE 100 IV (16:26)
[2024-06-02 16:28] LABS: Magnesium 1.8 mg/dl (1.6-2.3)
[2024-06-02 16:29] LABS: Ferritin 93.9 ng/ml (6.24-137)
[2024-06-02 17:00] LABS: Folate 11.2 ng/ml (2.76-20); Vitamin B12 398 pg/ml (239-931)
== END 2024-06-02 20:14 | disposition home or self-care (01) ==
LOC: EMR 13:02
PROVIDERS: EMERGENCY PHYSICIAN Emergency Medicine; FAMILY PHYSICIAN Nurse Practitioner
DX: D69.6 Thrombocytopenia, unspecified (principal); C73 Malignant neoplasm of thyroid gland; E83.51 Hypocalcemia; D64.9 Anemia, unspecified
CPT/HCPCS: 96374; 96361; 36430; 99285; 71260; 74177; 80053; 82607; 82728; 82746; 83540; 83550; 83735; 83970; 84443; 84703; 86850; 86900; 86901; 87811; P9073; Q9967